=== PATIENT | female | born 1960 | race Caucasian/White ===

== ENCOUNTER 2017-03-21 10:37 | Emergency (ER) | payer MEDICAID, OTHER ==
[~2017-03-21] VITALS: Ht 5619.3 cm; Wt 43.4 kg
[~2017-03-21 10:37] MED LIST: CYCL-1 PO
[2017-03-21 11:55] LABS: BASOPHILS # (AUTO) 0.1 X10'3 (0-0.2); BASOPHILS % (AUTO) 1.1 % (0-1); EOSINOPHILS # (AUTO) 0.3 X10'3 (0-0.9); EOSINOPHILS % (AUTO) 2.6 % (0-6); HEMATOCRIT 45.3 % (35.0-45.0); HEMOGLOBIN 15.4 g/dl (12.0-16.0); LYMPHOCYTES # (AUTO) 1.9 X10'3 (1.1-4.8); LYMPHOCYTES % (AUTO) 19.4 % (21-51); MEAN CORPUSCULAR HEMOGLOBIN 32.6 PG (27.0-31.0); MEAN CORPUSCULAR HGB CONC 33.9 % (33.0-36.5); MEAN CORPUSCULAR VOLUME 96.1 FL (78-98); MONOCYTES # (AUTO) 0.4 X10'3 (0-0.9); MONOCYTES % (AUTO) 4.3 % (2-12); NEUTROPHILS # (AUTO) 7.2 X10'3 (1.8-7.7); NEUTROPHILS % (AUTO) 72.6 % (42-75); PLATELET COUNT 343 X10'3 (140-440); RED BLOOD COUNT 4.71 X10'6 (4.20-5.60); RED CELL DISTRIBUTION WIDTH 14.3 % (11.5-14.5)
[2017-03-21 12:08] LABS: ALANINE AMINOTRANSFERASE 36 U/L (12-78); ALBUMIN/GLOBULIN RATIO 1.1 (1.1-1.5); ALKALINE PHOSPHATASE 105 IU/L (46-116); ANION GAP 10 (8-16); ASPARTATE AMINO TRANSFERASE 18 U/L (10-37); BILIRUBIN,TOTAL 0.6 MG/DL (0.1-1.0); BLOOD UREA NITROGEN 20 MG/DL (7-18); CALCIUM 9.4 MG/DL (8.5-10.1); CHLORIDE 103 MMOL/L (99-107); CREATININE 0.87 MG/DL (0.40-0.90); GLUCOSE 106 MG/DL (70-104); SODIUM 139 MMOL/L (135-145); TOTAL CARBON DIOXIDE 26.2 MMOL/L (24-32); TOTAL PROTEIN 7.8 G/DL (6.4-8.2); eGFR 68 ML/MIN
[2017-03-21 14:03] VITALS: BP 109/44
== END 2017-03-21 14:04 | disposition home or self-care (01) ==
LOC: ER 10:38
DX: G95.89 Other specified diseases of spinal cord (principal); G43.909 Migraine, unspecified, not intractable, without status migrainosus
CPT/HCPCS: 36415; 71046; 80053; 85025; 87040; 99285

== ENCOUNTER 2019-03-16 14:23 | Emergency (ER) | payer MEDICAID ==
[~2019-03-16] VITALS: Ht 170.2 cm; Wt 44.5 kg
[2019-03-16 15:08] LABS: BASOPHILS # (AUTO) 0.1 X10'3 (0-0.2); BASOPHILS % (AUTO) 0.8 % (0-1); EOSINOPHILS # (AUTO) 0.1 X10'3 (0-0.9); EOSINOPHILS % (AUTO) 0.6 % (0-6); HEMATOCRIT 43.4 % (35.0-45.0); HEMOGLOBIN 14.8 g/dl (12.0-16.0); LYMPHOCYTES # (AUTO) 1.4 X10'3 (1.1-4.8); LYMPHOCYTES % (AUTO) 13.8 % (21-51); MEAN CORPUSCULAR HEMOGLOBIN 33.4 PG (27.0-31.0); MEAN CORPUSCULAR HGB CONC 34.2 g/dL (33.0-36.5); MEAN CORPUSCULAR VOLUME 97.7 FL (78-98); MEAN PLATELET VOLUME 7.9 FL (7.4-10.4); MONOCYTES # (AUTO) 0.6 X10'3 (0-0.9); MONOCYTES % (AUTO) 6.2 % (2-12); NEUTROPHILS # (AUTO) 7.8 X10'3 (1.8-7.7); NEUTROPHILS % (AUTO) 78.6 % (42-75); PLATELET COUNT 291 X10'3 (140-440); RED BLOOD COUNT 4.44 X10'6 (4.20-5.60); RED CELL DISTRIBUTION WIDTH 13.7 % (11.5-14.5); WHITE BLOOD COUNT 9.9 X10'3 (4.5-11.0)
[2019-03-16 15:26] LABS: ALANINE AMINOTRANSFERASE 21 U/L (12-78); ALBUMIN 3.5 G/DL (3.4-5.0); ALBUMIN/GLOBULIN RATIO 0.9 (1.1-1.5); ALKALINE PHOSPHATASE 103 IU/L (46-116); ANION GAP 7 (8-16); ASPARTATE AMINO TRANSFERASE 11 U/L (10-37); BILIRUBIN,TOTAL 0.6 MG/DL (0.1-1.0); BLOOD UREA NITROGEN 19 MG/DL (7-18); BUN/CREATININE RATIO 20.4 (6.6-38.0); CALCIUM 8.7 MG/DL (8.5-10.1); CHLORIDE 106 MMOL/L (99-107); CREATININE 0.93 MG/DL (0.40-0.90); GLUCOSE 110 MG/DL (70-104); POTASSIUM 3.6 MMOL/L (3.5-5.1); SODIUM 143 MMOL/L (135-145); TOTAL CARBON DIOXIDE 29.7 MMOL/L (24-32); TOTAL PROTEIN 7.4 G/DL (6.4-8.2); eGFR 62 ML/MIN
[2019-03-16 16:26] LABS: D-DIMER 0.28 MG/L FEU (0-0.50)
[2019-03-16] MEDS ORDERED: AZIT-72 PO (16:37)
[2019-03-16] MEDS ORDERED: PRED20TA PO (16:37)
[2019-03-16 16:44] VITALS: BP 114/61
== END 2019-03-16 16:51 | disposition home or self-care (01) ==
LOC: ER 14:24
DX: J44.9 Chronic obstructive pulmonary disease, unspecified (principal); J18.9 Pneumonia, unspecified organism; F17.200 Nicotine dependence, unspecified, uncomplicated; G43.909 Migraine, unspecified, not intractable, without status migrainosus; Z79.2 Long term (current) use of antibiotics; Z79.899 Other long term (current) drug therapy
CPT/HCPCS: 36415; 71045; 80053; 84484; 85025; 85379; 93005; 99284

== ENCOUNTER 2024-10-16 12:36 | Emergency (ER) | payer MEDICAID ==
[~2024-10-16] VITALS: Ht 170.2 cm; Wt 55.3 kg
[~2024-10-16 12:36] MED LIST changes: +ALBU2.5V7 NEB; +DOXY-224 PO; +IPRA3AMP9 NEB; +MONT-40 PO; +PRED20TA PO
--- NOTE | 2024-10-16 12:46 | ELECTROCARDIOGRAPH REPORT ---
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
[2024-10-16 12:52] LABS: MEAN PLATELET VOLUME 8.5 FL (7.4-10.4); RED CELL DISTRIBUTION WIDTH 13.6 % (11.5-14.5)
--- NOTE | 2024-10-16 13:11 | RADIOLOGY REPORT ---
AP portable chest CLINICAL INDICATION: CP Comparison: 03/07/2023 FINDINGS: Heart size is normal. No infiltrates or effusions. Lung rosario are slightly hyperexpanded. IMPRESSION: 1. No acute cardiopulmonary pathology
[2024-10-16 13:13] LABS: CREATININE 0.98 MG/DL (0.40-0.90); PRO BRAIN NATRIURETIC PEPTIDE 154 PG/ML (0-125); TOTAL CARBON DIOXIDE 28.4 MMOL/L (24-32); eCRCL 53 ML/MIN; eGFR 58 ML/MIN
--- NOTE | 2024-10-16 13:25 | Physician Documentation ---
History of Present Illness ~ Chief Complaint: Chest Pain Stated Complaint: HIGH BLOOD PRESSURE AND CP Time Seen by MD: 12:56 Primary Medical Doctor: MATTI MARTIN Source: patient Exam Limitations: no limitations HPI Chief Complaint: Chest pain Caveat: None Independent Historians: None History of Present Illness: Patient is a 63-year-old woman who comes in complaining of right-sided chest pain for five days. Pain has been constant, sharp, worse with a deep breath or cough. No fever. Cough is nonproductive. Patient states last night she felt flushed and she checked her blood pressure is 140 systolic. Patient's blood pressure normally runs in the 90s. Patient has known congestive heart failure. Patient complains of some shortness a breath. Patient denies any other associated symptoms. Review of systems: All systems were reviewed and are negative except for what is indicated in the history of present illness. Past Medical History: CHF, COPD Past Surgical History: Noncontributory Social History: Former smoker, denies alcohol use or drug use Medications: Reviewed as documented Nursing Notes Allergies: Reviewed as documented in Nursing Notes Medication Reconciliation Allergies: Coded Allergies: No Known Allergies (Unverified , 10/16/24) Scheduled Doxycycline Hyclate (Doxycycline Hyclate), 100 MG PO BID Montelukast Sodium (Montelukast Sodium), 10 MG PO DAILY Prednisone* (Prednisone*), 2 TAB PO DAILY Scheduled PRN Albuterol Sulfate (Albuterol Sulfate), 2.5 MG NEB Q2H PRN for SOB or wheezing Cyclobenzaprine* (Cyclobenzaprine*), 1 TABLET PO Q8H PRN for muscle spasms Ipratropium/Albuterol Sulfate (IPRAT-ALBUT 0.5-3(2.5) MG/3 ML nebule), 3 ML NEB Q6H PRN for SOB or wheezing Past Medical History Past Medical History: Migraine, COPD Past Surgical History: noncontributory Patient History: Patient reports no known family medical history. Alcohol Use: None Drug Use: none Lives with: Spouse Lives In: Home Review of Systems All Other Systems at this time: Reviewed and Negative ROS Patient denies any other acute symptoms other than above. All other systems are negative Physical Exam Vital Signs: RN Vital Signs have been reviewed: Yes, Temperature: 96.8, Source: Temporal, Heart Rate: 66, Respiratory Rate: 20, BP: 119/78, Pulse Oximetry: 97, Weight: 55.300 Oxygen Flow Rate: 0 Pulse Oximetry Reflects: adequate oxygenation Physical Exam General Appearance: No distress, chronically ill-appearing HEENT: Normal OP, moist oral mucosa, PERRL, EOMI Neck: supple, normal ROM, trachea midline Pulmonary: No respiratory distress, CTA, BS equal Cardiac: RRR, no murmur, rub or gallop, GI: nondistended, soft, nontender, normal bowel sounds, no guarding, no rebound Extremities: normal ROM, no swelling, non-tender Skin: intact, dry, warm, no rashes Neuro: AAOx3, speech is clear, no focal motor weakness Psych: normal affect, good eye contact, no apparent hallucination, normal speech Progress Results/Orders Results/Orders Orders - ROSY MACKENZIE MD Chest,Single View (10/16/24 12:44) Monitor (10/16/24 12:44) Saline Lock (10/16/24 12:44) Oxygen (10/16/24 12:44) Completed Orders - ROSY MACKENZIE MD Chest,Single View (10/16/24 12:44) Cbc/Diff (10/16/24 12:44) BMP (10/16/24 12:44) PBNP (10/16/24 12:44) Electrocardiogram (10/16/24 12:44) Hs Troponin I W Calculations (10/16/24 12:44) Vital Signs 10/16/24 10/16/24 10/16/24 10/16/24 12:37 13:17 13:55 14:46 Temp 96.8 96.8 96.8 Pulse 66 86 58 Resp 20 16 18 B/P (MAP) 119/78 117/47 (70) 107/56 (73) Pulse Ox 97 95 98 O2 Flow Rate 0 0 0 10/16/24 15:32 Pulse 55 Resp 18 B/P (MAP) 105/58 Pulse Ox 96 Laboratory Tests Test 10/16/24 12:45 White Blood Count 7.6 Red Blood Count 4.40 Hemoglobin 14.3 Hematocrit 41.4 Mean Corpuscular Volume 94.2 Mean Corpuscular Hemoglobin 32.4 H Mean Corpuscular Hemoglobin Concent 34.4 Red Cell Distribution Width 13.6 Platelet Count 262 Mean Platelet Volume 8.5 Neutrophils (%) (Auto) 69.3 Lymphocytes (%) (Auto) 22.5 Monocytes (%) (Auto) 5.6 Eosinophils (%) (Auto) 1.8 Basophils (%) (Auto) 0.8 Neutrophils # (Auto) 5.3 Lymphocytes # (Auto) 1.7 Monocytes # (Auto) 0.4 Eosinophils # (Auto) 0.1 Basophils # (Auto) 0.1 CBC Comment Sodium Level 138 Potassium Level 3.8 Chloride Level 102 Carbon Dioxide Level 28.4 Anion Gap 8 Blood Urea Nitrogen 16 Creatinine 0.98 H Estimated GFR/1.73 m2 58 BUN/Creatinine Ratio 16.3 Glucose Level 102 Calcium Level 9.2 Troponin I High Sensitivity 4 Pro-B-Type Natriuretic Peptide 154 H Albumin 4.0 Chemistry Comments Medical Decision Making Additional info obtained from: old records Findings Differential diagnosis includes but is not limited to: Pulmonary embolus, pleurisy, pneumonia, COPD, acute coronary syndrome, chest wall pain EKG independent interpretation: Chest x-ray, single view, indication: CHEST PAIN Independent interpretation: Chest x-ray consistent with COPD. Hyperinflated, flat hemidiaphragms, no infiltrates, lungs are clear, normal mediastinum, normal cardiac silhouette Laboratory data independent interpretation: CBC: Unremarkable BMP: Unremarkable Troponin: 4 Emergency department course/medical decision-making: Patient is a 63-year-old woman who smokes and has COPD. She presents with right pleuritic chest pain. I do not suspect pulmonary embolus. Patient is afebrile and hemodynamically stable. Patient has had constant chest pain for at least four days. Patient's troponin is negative. No evidence for acute coronary syndrome. Patient did not wish to have anything for her pain. Patient will be instructed to take Advil and Tylenol for pain. She appears to have some pleurisy. No evidence of pneumonia. Patient is stable for discharge. All the above, test results and treatment plan reviewed with the patient. Departure Time of Disposition: 14:52 Disposition: 01 HOME / SELF CARE / HOMELESS Impression: Primary Impression: Pleuritic chest pain Condition: Stable Discharge Instructions: Pleurisy, Ojjd-by-Gwls Education Educated: Patient Educated regarding: diagnosis, treatment, need for follow up Signature Scribe Signature: No scribe Attestation: No scribe ROSY MACKENZIE MD Oct 16, 2024 13:25
[2024-10-16 14:46] VITALS: TEMP 96.8
[2024-10-16 15:32] VITALS: BP 105/58; PULSE 55; RESP 18; O2SAT 96
== END 2024-10-16 15:34 | disposition home or self-care (01) ==
LOC: ER 12:36
DX: R07.81 Pleurodynia (principal); I50.9 Heart failure, unspecified; J44.9 Chronic obstructive pulmonary disease, unspecified; G43.909 Migraine, unspecified, not intractable, without status migrainosus; Z87.891 Personal history of nicotine dependence
CPT/HCPCS: 36415; 71045; 80048; 83880; 84484; 85025; 93005; 99285